=== PATIENT | female | born 1970 ===

== ENCOUNTER 2024-06-16 15:20 | Outpatient (AMB) | payer MEDICAID, SELFPAY ==
--- NOTE | 2024-06-16 15:22 | A.OFFVIS_ITS ---
Vital Signs 06/16/24 15:23 Height 5 ft 4 in Weight 137 lb 12.623 oz BMI 23.6 BP 110/62 Blood Pressure Location Lt brachial Position Sitting Pulse 85 Pulse Source Pulse Oximeter Pulse Oximetry (%) 100 Oxygen Delivery Method Room Air Oxygen Flow Rate 0 Intake Visit Reasons: copd Intake Note: pt is here for , dx with alpha tripson INSUFFICIENCY and copd 1991 ([facility]). now she cannot get a deep breath, and finding it harder than it ever was, affecting her everyday life. Shim Plug Cutter Required: No Allergies Cephalosporins [CEPHALOSPORINS] Allergy (Unknown, Unverified 06/16/24 17:12) UNKNOWN haloperidol [From HALDOL] Allergy (Unknown, Unverified 06/16/24 17:12) DIFFICULTY BREATHING nitrofurantoin [NITROFURANTOIN] Allergy (Unknown, Unverified 06/16/24 17:12) edema NSAIDS (Non-Steroidal Anti-Inflamma [NSAIDS (NON-STEROIDAL ANTI-INFLAMMA] Allergy (Unknown, Unverified 06/16/24 17:12) BLEEDING ULCERS penicillin V Allergy (Unknown, Verified 06/16/24 17:12) Unknown Penicillins Allergy (Unknown, Unverified 06/16/24 17:12) RASH quetiapine [From SEROQUEL] Allergy (Unknown, Unverified 06/16/24 17:12) ?EPS Sulfa (Sulfonamide Antibiotics) [SULFA (SULFONAMIDE ANTIBIOTICS)] Allergy (Unknown, Unverified 06/16/24 17:12) UNKNOWN Medication List - Last Reconciled 06/16/24 by Essie Walsh MD albuterol sulfate 90 mcg/actuation 2 puffs inhalation Q6H PRN atenolol 100 mg PO DAILY clonidine HCl 0.2 mg PO TID famotidine 20 mg PO BEDTIME furosemide 40 mg PO DAILY tiotropium bromide (Spiriva with HandiHaler) 1 cap inhalation DAILY PRN Do you need a note to return to daycare/school/sports/work: No HPI HPI copd: Details: THIS 53 YEARS OLD FEMALE CAME TO OUR OFFICE TODAY AND WANTED TO BE SEEN. SHE CLAIMS THAT IN THE PAST SHE HAS SEEN ME AND TODAY ALSO WANTED TO BE SEEN BY ME. IN OUR HOSPITAL RECORD SYSTEM I SEE NO RECORD SEEING HER IN THIS OFFICE. SHE CLAIMS THAT SHE WAS LIVING IN [place] UNTIL ABOUT 2009, THAT IS WHEN SHE MOVED TO [facility]. HER DAUGHTER WHO LIVES IN [place] HAS BEEN DIAGNOSED TO HAVE ALPHA ANTITRYPSIN DEFICIENCY. SHE COULD NOT TELL ME THE DETAILS OF HER TREATMENT. HE TOLD ME THAT SHE WAS ALSO TESTED AND SHE HAS THE GENETIC TRAIT BUT NOT REAL ANTITRYPSIN DEFICIENCY. ANYWAY SHE HAS BEEN TREATED FOR CHRONIC OBSTRUCTIVE PULMONARY DISEASE SINCE MANY YEARS AGO. I COULD SEE THAT SHE HAD A PULMONARY FUNCTION TEST AT [facility] BACK IN 2010 WHICH DID SHOW MILD TO MODERATE DEGREE OF OBSTRUCTIVE AIRWAY DISORDER. INITIALLY THIS PATIENT WAS ON SPIRIVA AND ALSO INHALED STEROIDS ( ASMANEX) SHE TELLS ME THAT SHE COULD NOT TOLERATE THE INHALED STEROIDS. SHE TELLS ME THAT THERE WAS SOME INTERACTION BETWEEN THIS INHALER AND THE DIURETICS, AND SHE GETS LOT OF MUSCLE CRAMPS IN THE LEGS WHEN SHE USES THE INHALER. ANYWAY SHE DOES USE SPIRIVA HANDIHALER ONCE A DAY. SHE DENIES ANY BOUTS OF COUGH OR WHEEZING. BUT SHE DOES GET SHORT OF BREATH WHEN SHE CLIMBS STAIRS OR WALKS OUTDOORS. SHE IS ASKING FOR SOME ORAL STEROIDS TO USE SHE NEEDS. AT THE SAME TIME SHE IS ALSO ON DIURETIC THERAPY TAKING LASIX 30 MG A DAY FOR FLUID RETENTION IN THE LEGS. SHE DOES NOT PRESENT WITH ANY ACUTE INFECTION AT THIS TIME. DURING CONVERSATION IN THE OFFICE I COULD SEE THAT SHE SITTING COMFORTABLY WITHOUT ANY SHORTNESS OF BREATH. [facility] Medical History COPD (chronic obstructive pulmonary disease) Social History Patient Tobacco Use Status: Former Tobacco user Review of Systems Const Details: REVIEW OF SYSTEMS IS NOTED IN HISTORY OF PRESENT ILLNESS. Physical Exam Vital Signs: Last Vital Signs Pulse 85 06/16/24 15:23 BP 110/62 06/16/24 15:23 Pulse Ox 100 06/16/24 15:23 Oxygen Delivery Method Room Air 06/16/24 15:23 Oxygen Flow Rate 0 06/16/24 15:23 BMI result Body Mass Index 23.6 PATIENT IS OF A THIN BUILD, SHE IS SITTING. COMFORTABLY WITHOUT ANY DISTRESS Const General: healthy appearing, comfortable, no acute distress, alert and awake Orientation/consciousness: patient oriented x3 HEENT Head: Yes normal to inspection General nose exam: No nasal polyps present and No nasal discharge present Face and sinus: Yes sinuses nontender Mouth: oropharynx normal Throat: Yes posterior oropharynx normal Eyes General: appearance normal, both eyes and all related structures Neck Neck: Yes normal visual inspection, Yes no lymphadenopathy, Yes trachea midline and Yes no JVD Thyroid: Thyroid normal Chest Chest palpation & inspection: normal inspection of the chest, normal palpation of entire chest wall and no tenderness Resp Other: PERCUSSION NOTE IS RESONANT, BREATH SOUNDS SLIGHTLY DISTANT BUT EQUAL ON BOTH SIDES, NO WHEEZES OR RHONCHI ARE HEARD Effort & Inspection: normal respiratory effort Auscultation: clear to auscultation bilaterally, no crackles and no wheezes Cardio Palpation: normal PMI Rate: regular rate Rhythm: regular rhythm Heart sounds: no gallops and no murmurs GI Palpation (GI): Soft to palpation, nontender, No hepatosplenomegaly present and no masses Auscultation: normal bowel sounds Back/Spine/Pelvis Thoracic/Lumbar Spine: thoracic and lumbar spine normal to inspection Skin General skin exam: no rashes or lesions noted Neuro General: patient oriented x3 and no focal motor deficits Cranial nerves: Yes CN's II-XII intact bilaterally Extrem General: Yes normal to inspection, Yes no clubbing, cyanosis or edema, Yes no calf tenderness and No edema Psych Appearance: grossly normal and well kempt Speech and movement: Normal speech and movement present Affect: Anxious affect present Assessment & Plan Assessment & Plan (1) COPD (chronic obstructive pulmonary disease): Comment: PATIENT HAS PAST HISTORY OF SMOKING QUIT MANY YEARS AGO. SHE DOES HAVE MILD CHRONIC OBSTRUCTIVE PULMONARY DISEASE, WAS NOTED IN PFT IN 2011. AT PRESENT LUNGS ARE CLEAR. NEEDS PULMONARY FUNCTION TEST TO DETERMINE THE SEVERITY OF COPD. Code(s): J44.9 - Chronic obstructive pulmonary disease, unspecified Category: Medical Plan: PULMONARY FUNCTION TEST IS ORDERED BEFORE NEXT VISIT CHEST X-RAY IS ORDERED. FOR TREATMENT PATIENT IS ADVISED TO CONTINUE USING SPIRIVA HANDIHALER 1 CAPSULE DAILY AND ALSO USE ALBUTEROL 2 PUFFS Q 4-6 HOURS P.R.N.. PATIENT WAS ASKING FOR PREDNISONE, AND I HAD TO TALK TO HER AT LENGTH AND EXPLAINED THAT SHE DOES NOT NEED PREDNISONE AT THIS TIME. I WILL DECIDE AFTER THE PULMONARY FUNCTION TEST IF SHE NEEDS TO BE STARTED ON SOME INHALED STEROIDS Orders: Orders PFT pulmonary function test Today J44.9 - Chronic obstructive pulmonary disease, unspecified XR chest 2V Today J44.9 - Chronic obstructive pulmonary disease, unspecified Coding Level of Care Code New Pt Level 4 (92744) Diagnoses COPD (chronic obstructive pulmonary disease) J44.9
[2024-06-16 15:23] VITALS: BP 110/62; PULSE 85; O2SAT 100; BMI 23.6
--- OUTSIDE RECORDS SUMMARY | 2024-06-16 17:18 | XMS_ITS | Encounter Summary ---
Author Organization [employer] Address [address] [place] [address] [address], [place] [address] Care Team Providers Care Phonograph Needle Tip Maker Name Role Phone Eloy Dick MD Primary Care Provider +1- [phone] Reason for Visit * Reason Comments Med Refill Encounter Details Date Type Department Care Team (Late st Contact Info) Description 12/30/2023 Refill [facility] [address] [place], [place] [phone] Eloy Dick MD [address] [place] [address] Attention deficit disorder (ADD) without hyperactivity Social History Tobacco Use Types Packs/Day Years Used Date Smoking Tobacco: Former Cigarettes 0.3 8 2 2018 Smokeless Tobacco: Never Comments Unknown Sex and Gender Information Value Date Recorded Sex Assigned at Female 03/18/2022 10:21 AM EDT Legal Sex Female 10:21 AM EDT Gender Identity Female 03/18/2022 10:21 AM EDT Sexual Orientation Choose not to disclose 2021 10:21 AM EDT documented as of this encounter Plan of Treatment Not on file documented as of this encounter Visit Diagnoses Diagnosis Attention deficit disorder (ADD) without hyperactivity documented in this encounter Care Teams Phonograph Needle Tip Maker Relationship Specialty Start Date End Date Eloy Dick MD [address] [place] [address] PCP - General Internal Medicine 05/19/18 documented as of this encounter
--- OUTSIDE RECORDS SUMMARY | 2024-06-16 17:18 | XMS_ITS | Encounter Summary ---
Author Organization [employer] Address [address] [facility] [address] [place] [address] Care Team Providers Care Furniture Installer Name Role Phone Eloy Dick MD Primary Care Provider +1- [phone] Reason for Visit * Reason Onset Date Comments Med Refill 12/30/2023 Encounter Details Date Type Department Care Team (Late st Contact Info) Description 12/30/2023 Telephone [facility] MEDICINE [address] [place] [address] Eloy Dick MD [address] [place], [place] [phone] Med Refill Social History Tobacco Use Types Packs/Day Years [...] AM EDT documented as of this encounter Miscellaneous Notes * Telephone Encounter - Wing Raul RN - 12/31/2023 9:05 AM EDT Tc to pt regarding prednisone prescribed and recommendation for pt to be seen earlier than appt for02/05. Pt declined due to her belief that prednisone would work and difficulty with transportation. Advised pt to call back if she would like an earlier appt. Pt verbalized understanding and agreementwith plan. * Telephone Encounter - Wing Raul RN - 12/30/2023 1:17 PM EDT Please advise, pt requesting prednisone, 20 mg due to Alpha-11 antitrypsin deficiency causing increasing in coughing and difficulty breathing. Pt reports she usually gets med from PCP twice a year. Stated to pt would pass message along to PCP and have an RN call back when PCP make a decision. Pt verbalized understanding and agreement with plan. * Telephone Encounter - Elle Valerio LPN - 12/30/2023 12:49 PM EDT Med not on med list Tc from pt requesting med refill on predniSONE (Deltasone) 20 MG tablet Pt states she is really needing this medication due to her medical conditions Please sent to [facility] * Telephone Encounter - Myriam Castle - 12/30/2023 10:49 AM EDT Tc from pt requesting med refill on predniSONE (Deltasone) 20 MG tablet Pt states she is really needing this medication due to her medical conditions Please sent to [facility] documented in this encounter Plan of Treatment Not on file documented as of this encounter Visit Diagnoses Diagnosis Moderate persistent asthma with acute exacerbation- Primary documented in this encounter Care Teams Furniture Installer Relationship Specialty Start Date End Date Eloy Dick MD [address] [place] [address] PCP - General Internal Medicine 05/19/18 documented as of this encounter
--- OUTSIDE RECORDS SUMMARY | 2024-06-16 17:18 | XMS_ITS | Encounter Summary ---
Author Organization [employer] Address [address] [facility] [address] [place] [address] Care Team Providers Care Pocket Machine Operator Name Role Phone Eloy Dick MD Primary Care Provider +1- [phone] Encounter Details Date Type Department Care Team ([facility] st Contact Info) Description 11/22/2022 Orders Only [facility] [address] [place], [place] [phone] Eloy Dick MD [address] [place] [address] Social History Tobacco Use Types Packs/Day Years Used Date Smoking Tobacco: Former Cigarettes 0.3 8 2 011 - 2019 Smokeless Tobacco: Never Comments Unknown Sex and Gender Information Value Date Recorded Sex Assigned at Female 03/18/2022 10:21 AM EDT Legal Sex Female 10:21 AM EDT Gender Identity Female 03/18/2022 10:21 AM EDT Sexual Orientation Choose not to disclose 2021 10:21 AM EDT documented as of this encounter Plan of Treatment Not on file documented as of this encounter Visit Diagnoses Not on filedocumented in this encounter Care Teams Pocket Machine Operator Relationship Specialty Start Date End Date Eloy Dick MD [address] [place] [address] PCP - General Internal Medicine 05/19/18 documented as of this encounter
--- OUTSIDE RECORDS SUMMARY | 2024-06-16 17:19 | XMS_ITS | Clinical Summary ---
Author Organization [employer] Address [address] [place] [address] [address] [place] [address] Care Team Providers Care Materials Planner/Production Planner Name Role Phone Eloy Dick MD Primary Care Provider +1- [phone] Allergies Active Allergy Reactions Criticality Noted Date Comments Cephalosporins 07/23/2022 Diltiazem 08/22/2020 Other reaction(s): Edema Haloperidol 01/07/2018 Losartan 09/05/2020 Other reaction(s): Erythema Nitrofurantoin 04/27/2014 Other reaction(s): Swelling, difficulty breathing , Swelling, difficulty breathing Penicillins Rash Low 05/08/2010 Quetiapine 07/23/2022 Sulfadiazine 07/23/2022 Medications levothyroxine (Synthroid, Levoxyl) 25 MCG tablet Take 25 mcg by mouth. 018 Active Mometasone Furoate (Asmanex, 60 Metered Doses,) 220 MCG/ACT aerosol powder inhale 1 puff by inhalation route 2 times every day 022 Active tiotropium (Spiriva HandiHaler) 18 MCG inhalation capsuleIndication s:SOB (shortness of breath) Place 1 capsule (18 mcg) into inhaler and inhale in the morning. 30 capsule 023 Active cloNIDine (Catapres) 0.3 MG tabletIndications :Essential hypertension TAKE 1 TABLET BY MOUTH THREE TIMES DAILY 90 tablet 1 024 Active nicotine (Nicoderm CQ) 21 MG/24HR patch Place 1 patch on the skin 1 (one) time each day at the same time. 30 patch 024 Active furosemide (Lasix) 20 MG tabletIndications :Essential hypertension TAKE 1 TABLET BY MOUTH TWICE DAILY 180 tablet 1 024 Active nicotine (Nicoderm CQ) 7 MG/24HR patch Place 1 patch on the skin 1 (one) time each day at the same time for 14 days. 14 patch 024 Active levothyroxine (Synthroid, Levoxyl) 50 MCG tabletIndications :Other specified hypothyroidism TAKE 1 TABLET BY MOUTH ONCE DAILY BEFORE BREAKFAST 90 tablet 1 024 Active cloNIDine (Catapres) 0.3 MG tabletIndications :Essential hypertension TAKE 1 TABLET BY MOUTH THREE TIMES DAILY 90 tablet 3 024 Active atenolol (Tenormin) 100 MG tabletIndications :Essential hypertension TAKE 1 TABLET BY MOUTH ONCE DAILY 90 tablet 1 024 Active nicotine (Nicoderm, Step 2) 14 MG/24HR patch APPLY 1 PATCH TOPICALLY TO THE SKIN IN THE MORNING. DO NOT SMOKE WHILE USING PATCH 28 patch 024 Active albuterol (Ventolin HFA) 108 (90 Base) MCG/ACT inhalerIndication s:Mild intermittent asthma without complication INHALE 2 PUFFS BY MOUTH EVERY 4 HOURS NEEDED 18 g 1 025 Active amphetamine-dextr oamphetamine (Adderall) 30 MG tabletIndications :Attention deficit disorder (ADD) without hyperactivity TAKE 1 TABLET BY MOUTH TWICE DAILY 60 tablet 025 Active famotidine (Pepcid) 20 MG tabletIndications :Epigastric pain Take 1 tablet (20 mg) by mouth Once per day. 30 tablet 11 025 Active famotidine (Pepcid) 20 MG tablet Take 1 tablet by mouth. 021 2024 Discontinued(R eorder (will not trigger notification to Pharmacy)) famotidine (Pepcid) 40 MG/5ML suspensionIndicat ions:Epigastric pain Take 1.9 mL (15.2 mg) by mouth 2 times daily. 50 mL 2 024 2024 Discontinued albuterol (Ventolin HFA) 108 (90 Base) MCG/ACT inhalerIndication s:Mild intermittent asthma without complication INHALE 2 PUFFS BY MOUTH EVERY 4 HOURS NEEDED 18 g 1 024 2024 Discontinued amphetamine-dextr oamphetamine (Adderall) 30 MG tabletIndications :Attention deficit disorder (ADD) without hyperactivity TAKE 1 TABLET BY MOUTH TWICE DAILY 60 tablet 024 2024 Discontinued(R eorder (will not trigger notification to Pharmacy)) Active Problems Problem Noted Date Diagnosed Date Borderline personality disorder 07/23/2022 Chronic obstructive pulmonary disease 07/23/2022 History of hysterectomy 07/23/2022 Posttraumatic stress disorder 07/23/2022 Impaired fasting glucose 12/17/2020 Asthma 10/18/2019 Attention deficit hyperactivity disorder 012 Backache 08/15/2011 Dizziness and giddiness 08/15/2011 Gastroesophageal reflux disease 08/15/2011 Essential hypertension 08/15/2011 Encounters Date Type Department Care Team Description 06/03/2024 Orders Only [facility] [address] [place] [address] Eloy Dick MD Epigastric pain (Primary Dx) 06/02/2024 Telephone [facility] MED[facility] [address] [place] [address] Eloy Dick MD Medication Question 06/02/2024 Refill [facility] [address] [place] [address] Eloy Dick MD Attention deficit disorder (ADD) without hyperactivity 05/20/2024 Refill [facility] MED & PEDS [address] [place] [address] Eloy Dick MD Mild intermittent asthma without complication 05/10/2024 Refill [facility] PEDS [address] [place] [address] Eloy Dick MD 04/14/2024 Refill [facility] [address] [place] [address] Eloy Dick MD Essential hypertension 04/01/2024 Telephone [facility] [address] [place] [address] Eloy Dick MD Med Refill 03/31/2024 Refill [facility] PEDS [address] [place] [address] Eloy Dick MD Attention deficit disorder (ADD) without hyperactivity from Last 3 Months Family History Medical History Relation Name Comments Coronary artery disease Father Stroke Father Coronary artery disease Maternal Grandfather Coronary artery disease Maternal Grandmother Breast cancer Mother Hypertension Mother Coronary artery disease Paternal Grandfather Coronary artery disease Paternal Grandmother Relation Name Status Comments Father Maternal Grandfather Maternal Grandmother Mother Paternal Grandfather Paternal Grandmother Social History Tobacco Use Types Packs/Day Years Used Date Smoking Tobacco: Former Cigarettes 0.3 8 2 011 2018 Smokeless Tobacco: Never Tobacco Cessation:Counseling Given: Not Answered Comments Unknown Sex and Gender Information Value Date Recorded Sex Assigned at Female 03/18/2022 10:21 AM EDT Legal Sex Female 10:21 AM EDT Gender Identity Female 03/18/2022 10:21 AM EDT Sexual Orientation Choose not to disclose 2021 10:21 AM EDT Last Filed Vital Signs Vital Sign Reading Time Taken Comments Blood Pressure 127/86 02/06/2024 3:22 PM EDT Pulse 86 02/06/2024 3:22 PM EDT Temperature 36.3 ??C (97.4 ??F) 02/06/2024 3:22 PM ED T Respiratory Rate 20 02/06/2024 3:22 PM EDT Oxygen Saturation 97% 02/06/2024 3:22 PM EDT Inhaled Oxygen Concentration - - Weight 62.1 kg (137 lb) 02/06/2024 3:22 PM EDT Height 162.6 cm (5' 4 ) 02/06/2024 3:22 PM EDT Body Mass Index 23.52 02/06/2024 3:22 PM EDT Plan of Treatment Health Maintenance Due Date Last Done Comments CT Colonography 1969 Colonoscopy 1969 Colorectal Cancer Screening 1969 Depression Screening 1969 FIT DNA/Cologuard 1969 FIT 1969 FOBT 1969 HIV Screening 1969 Lipid Panel 1969 SDOH Screening 1969 Sigmoidoscopy 1969 Alcohol/Substance Use Screening 1981 Hepatitis C Screening 1987 DTaP/Tdap/Td Vaccines (1 - Tdap) 1988 Hepatitis A Vaccines (1 of 2 - Risk 2-dose series) 1988 Hepatitis B Vaccines (1 of 3 - 19+ 3-dose series) 1988 Pap Smear 1990 Cervical Cancer Screening 1999 HPV/Cotest 1999 Mammogram 2009 Pneumococcal Vaccine: 50+ Years (3 of 3 - PCV20 or PCV21) 2019 04/20/2014, 07/12/2009 Zoster Vaccines (1 of 2) 2019 COVID-19 Vaccine (1 - 2023- season) 2024 Influenza Vaccine (#1) 2024 , 03/11/2014, 08/20/2011, Additional history exists Tobacco Screening 02/05/2025 02/06/2024 RSV Patients and Patients Aged 60 years or older (1 - 1-dose 75+ series) 2044 HIB Vaccines Aged Out No longer eligi ble based on patient's age to complete this topic HPV Vaccines Aged Out No longer eligi ble based on patient's age to complete this topic IPV Vaccines Aged Out No longer eligi ble based on patient's age to complete this topic Meningococcal Vaccine Aged Out No vic phuong eligible based on patient's age to complete this topic RSV under 20 months Aged Out No longe r eligible based on patient's age to complete this topic Rotavirus Vaccines Aged Out No longer eligible based on patient's age to complete this topic Insurance [facility] C3 Care Teams Materials Planner/Production Planner Relationship Specialty Start Date End Date Eloy Dick MD [address] [place] [address] PCP - General Internal Medicine 05/19/18
--- OUTSIDE RECORDS SUMMARY | 2024-06-16 17:19 | XMS_ITS | Encounter Summary ---
Author Organization [employer] Address [address] [place] [address], [place] [address] Care Team Providers Care Manager Operations Research Name Role Phone Eloy Dick MD Primary Care Provider +1- [phone] Reason for Visit * Reason Comments Med Refill Encounter Details Date Type Department Care Team (Late st Contact Info) Description 12/18/2023 Refill [facility] [address] [place], [place] [phone] Eloy Dick MD [address] [place] [address] Mild intermittent asthma without complication Social History Tobacco Use Types Packs/Day Years [...] as of this encounter Visit Diagnoses Diagnosis Mild intermittent asthma without complication documented in this encounter Care Teams Manager Operations Research Relationship Specialty Start Date End Date Eloy Dick MD [address] [place] [address] PCP - General Internal Medicine 05/19/18 documented as of this encounter
--- OUTSIDE RECORDS SUMMARY | 2024-06-16 17:19 | XMS_ITS | Encounter Summary ---
Author Organization [employer] Address [address] [place] [address] [address] Care Team Providers Care Stretcher And Drier Name Role Phone Eloy Dick MD Primary Care Provider +1- [phone] Reason for Visit * Reason Comments Med Refill Encounter Details Date Type Department Care Team (Late st Contact Info) Description 05/20/2024 Refill [facility] [address] [place], [place] [phone] Eloy Dick MD [address] [place], [place] [phone] Mild intermittent asthma without complication Social History [...] complication documented in this encounter Care Teams Stretcher And Drier Relationship Specialty Start Date End Date Eloy Dick MD [address] [place] [address] PCP - General Internal Medicine 05/19/18 documented as of this encounter
--- OUTSIDE RECORDS SUMMARY | 2024-06-16 17:19 | XMS_ITS | Encounter Summary ---
Author Organization [employer] Address [address] [facility] [address] [place] [address] Care Team Providers Care Buck Swamper Name Role Phone Eloy Dikc MD Primary Care Provider +1- [phone] Reason for Visit * Reason Onset Date Comments Med Refill 04/01/2024 Encounter Details Date Type Department Care Team (Late st Contact Info) Description 04/01/2024 Telephone [facility] [address] [place] [address] Eloy Dick MD [address] [place] [address] Med Refill Social History Tobacco Use Types [...] encounter Miscellaneous Notes * Telephone Encounter - Selena Nelson LPN - 04/01/2024 2:30 PM EST Medication pended to PCP. * Telephone Encounter - Aleksander Stone - 04/01/2024 2:27 PM EST TC from pt requesting medication refill. Medications needing refill : nicotine (Nicoderm CQ) 14 MG/24HR patch To be sent to: [facility] - [place], [place] - [address] [facility] documented in this encounter Plan of Treatment Not on file documented as of this encounter Visit Diagnoses Not on filedocumented in this encounter Care Teams Buck Swamper Relationship Specialty Start Date End Date Eloy Dick MD [address] [place] [address] PCP - General Internal Medicine 05/19/18 documented as of this encounter
--- OUTSIDE RECORDS SUMMARY | 2024-06-16 17:19 | XMS_ITS | Encounter Summary ---
Author Organization [employer] Address [address] [facility] [address] [place] [address] Care Team Providers Care Cigar Packer And Shader Name Role Phone Eloy Dick MD Primary Care Provider +1- [phone] Reason for Visit * Reason Comments Med Refill Encounter Details Date Type Department Care Team (Late st Contact Info) Description 02/23/2023 Refill [facility] [address] [place], [place] [phone] Eloy Dick MD [address] [place] [address] Essential hypertension Social History Tobacco Use Types Packs/Day Years [...] as of this encounter Visit Diagnoses Diagnosis Essential hypertension Unspecified essential hypertension documented in this encounter Care Teams Cigar Packer And Shader Relationship Specialty Start Date End Date Eloy Dick MD [address] [place] [address] PCP - General Internal Medicine 05/19/18 documented as of this encounter
--- OUTSIDE RECORDS SUMMARY | 2024-06-16 17:19 | XMS_ITS | Encounter Summary ---
Author Organization [employer] Address [address] [facility] [place] [address] Care Team Providers Care Manager Cable Name Role Phone Eloy Dick MD Primary Care Provider +1- [phone] Reason for Visit * Reason Onset Date Comments Med Refill 06/02/2024 Encounter Details Date Type Department Care Team ([facility] st Contact Info) Description 06/02/2024 Refill [facility] MEDICINE 230 [place] [address] Eloy Dick MD 505 [place] [address] Attention deficit disorder (ADD) without hyperactivity Social [...] encounter Miscellaneous Notes * Telephone Encounter - Aleksander Stone - 06/02/2024 3:18 PM EST TC from pt requesting medication refill. Medications needing refill : amphetamine-dextroamphetamine (Adderall) 30 MG tablet To be sent to: [facility] - [place], [place] - 230 [facility] documented in this encounter Plan of Treatment Not on file documented as of this encounter Visit Diagnoses Diagnosis Attention deficit disorder (ADD) without hyperactivity documented in this encounter Care Teams Manager Cable Relationship Specialty Start Date End Date Eloy Dick MD [address] [place] [address] PCP - General Internal Medicine 05/19/18 documented as of this encounter
--- OUTSIDE RECORDS SUMMARY | 2024-06-16 17:19 | XMS_ITS | Encounter Summary ---
Author Organization [employer] Address 75 [facility] 7[address] [place] [address] Care Team Providers Care Suede Brusher Name Role Phone Eloy Dick MD Primary Care Provider +1- [phone] Encounter Details Date Type Department Care Team ([facility] st Contact Info) Description 06/03/2024 Orders Only [facility] MED & PEDS 505 [place], [place] [phone] Eloy Dick MD 505 [place] [address] Epigastric pain (Primary Dx) Social History Tobacco Use Types Packs/Day Years [...] as of this encounter Visit Diagnoses Diagnosis Epigastric pain- Primary Abdominal pain, epigastric documented in this encounter Care Teams Suede Brusher Relationship Specialty Start Date End Date Eloy Dick MD 505 [place] [address] PCP - General Internal Medicine 05/19/18 documented as of this encounter
--- OUTSIDE RECORDS SUMMARY | 2024-06-16 17:19 | XMS_ITS | Encounter Summary ---
Author Organization [employer] Address [address] [place] [address] [place], [place] [address] Care Team Providers Care Brim Rounder Name Role Phone Eloy Dick MD Primary Care Provider +1- [phone] Reason for Visit * Reason Comments Med Refill Encounter Details Date Type Department Care Team (Late st Contact Info) Description 12/05/2022 Refill [facility]S 505 [place], [place] [phone] Eloy Dick MD 505 [place] [address] Attention deficit disorder (ADD) without hyperactivity Social [...] hyperactivity documented in this encounter Care Teams Brim Rounder Relationship Specialty Start Date End Date Eloy Dick MD 505 [place] [address] PCP - General Internal Medicine 05/19/18 documented as of this encounter
--- OUTSIDE RECORDS SUMMARY | 2024-06-16 17:19 | XMS_ITS | Encounter Summary ---
Author Organization [employer] Address [address] [place] [address] [place], [place] [address] Care Team Providers Care Regulatory Associate Name Role Phone Eloy Dick MD Primary Care Provider +1- [phone] Reason for Visit * Reason Comments Med Refill Encounter Details Date Type Department Care Team (Late st Contact Info) Description 05/20/2023 Refill [facility] MEDICINE 230 [place], [place] [phone] Eloy Dick MD 505 [place] [address] Attention deficit disorder (ADD) without hyperactivity Social [...] hyperactivity documented in this encounter Care Teams Regulatory Associate Relationship Specialty Start Date End Date Eloy Dick MD 505 [place] [address] PCP - General Internal Medicine 05/19/18 documented as of this encounter
--- OUTSIDE RECORDS SUMMARY | 2024-06-16 17:19 | XMS_ITS | Encounter Summary ---
Author Organization [employer] Address 75 [facility] 7[place] [address] Care Team Providers Care Electro Mechanical Solar Technician Name Role Phone Eloy Dick MD Primary Care Provider +1- [phone] Reason for Visit * Reason Onset Date Comments Medication Question 06/02/2024 Encounter Details Date Type Department Care Team ([facility] st Contact Info) Description 06/02/[address] [facility] MEDICINE 230 [place] [address] Eloy Dick MD 505 [place], [place] [phone] Medication Question Social History Tobacco Use Types Packs/Day Years [...] encounter Miscellaneous Notes * Telephone Encounter - Mary Sanchez RN - 06/03/2024 9:44 AM EST TC to patient. Pt states she believes the suspension was entered in error. She states she did not like the taste of the suspension and asked to switch back to tablet for. Denies any difficulty swallowing. Routing to provider. Can she switch to tablet form? * Telephone Encounter - Aleksander Stone - 06/02/2024 3:21 PM EST Tc from pt requesting to see if its possible to not take med famotidine (Pepcid) 40 MG/5ML suspension And to back top taking the Tablet version of the Med famotidine (Pepcid) 20 MG tablet Contact pt at [phone] documented in this encounter Plan of Treatment Not on file documented as of this encounter Visit Diagnoses Not on filedocumented in this encounter Care Teams Electro Mechanical Solar Technician Relationship Specialty Start Date End Date Eloy Dick MD [address] [place] [address] PCP - General Internal Medicine 05/19/18 documented as of this encounter
== END 2024-06-16 16:18 | disposition home or self-care (01) ==
PROVIDERS: PCP Internal Medicine; Visit Provider Internal Medicine
DX: J44.9 Chronic obstructive pulmonary disease, unspecified (principal)
CPT/HCPCS: 99204

== ENCOUNTER → 2024-06-16 15:20 | Outpatient (BNVA) | payer MEDICAID, SELFPAY | PROVIDERS: PCP Internal Medicine; Visit Provider Internal Medicine | DX: J44.9 Chronic obstructive pulmonary disease, unspecified (principal) | CPT/HCPCS: 99202 ==

== ENCOUNTER 2024-06-16 16:21 | Outpatient (REF) | payer MEDICAID, SELFPAY ==
--- NOTE | ~2024-06-16 | XR_ITS ---
CLINICAL HISTORY: J44.9 - Chronic obstructive pulmonary disease, unspecified 2 view chest x-ray Comparison: None Findings: The lungs are clear. Normal size heart. No acute fracture. IMPRESSION: 1. No acute findings. This document has been electronically signed by: Elgin Jean MD on 06/17/2024 15:28:03
--- OUTSIDE RECORDS SUMMARY | 2024-06-16 17:51 | XMS_ITS | Encounter Summary ---
Author Organization [employer] Address [address] [place] [address] [place], [place] [address] Care Team Providers Care Petroleum Products Sales Representative Name Role Phone Eloy Dick MD Primary Care Provider +1- [phone] Reason for Visit * Reason Comments Med Refill Encounter Details Date Type Department Care Team (Late st Contact Info) Description 12/18/2023 Refill [facility] CHC MED & PEDS 505 [place], [place] [phone] Eloy Dick MD 505 [place] [address] Mild intermittent asthma without complication Social History [...] complication documented in this encounter Care Teams Petroleum Products Sales Representative Relationship Specialty Start Date End Date Eloy Dick MD 505 [place] [address] PCP - General Internal Medicine 05/19/18 documented as of this encounter
--- OUTSIDE RECORDS SUMMARY | 2024-06-16 17:51 | XMS_ITS | Encounter Summary ---
Author Organization [employer] Address [address] [facility] 7[place] [address] Care Team Providers Care Waste Chopper Name Role Phone Eloy Dick MD Primary Care Provider +1- [phone] Encounter Details Date Type Department Care Team ([facility] st Contact Info) Description 11/22/2022 Orders Only [facility] CHC MED & PEDS 505 [place], [place] [phone] Eloy Dick MD 505 [place] [address] Social History Tobacco Use Types Packs/Day Years [...] on filedocumented in this encounter Care Teams Waste Chopper Relationship Specialty Start Date End Date Eloy Dick MD 505 [place] [address] PCP - General Internal Medicine 05/19/18 documented as of this encounter
--- OUTSIDE RECORDS SUMMARY | 2024-06-16 17:51 | XMS_ITS | Encounter Summary ---
Author Organization [employer] Address [address] [place] [address] [place] [address] Care Team Providers Care Estimate Clerk Name Role Phone Eloy Dick MD Primary Care Provider +1- [phone] Reason for Visit * Reason Comments Med Refill Encounter Details Date Type Department Care Team (Late st Contact Info) Description 12/30/2023 Refill C [facility] 505 [place], [place] [phone] Eloy Dick MD 505 [place] [address] Attention deficit disorder (ADD) without hyperactivity Social [...] hyperactivity documented in this encounter Care Teams Estimate Clerk Relationship Specialty Start Date End Date Eloy Dick MD 505 [place] [address] PCP - General Internal Medicine 05/19/18 documented as of this encounter
--- OUTSIDE RECORDS SUMMARY | 2024-06-16 17:51 | XMS_ITS | Encounter Summary ---
Author Organization [employer] Address 75 [facility] 7[address] [place] [address] Care Team Providers Care Drag Out Worker Name Role Phone Eloy Dick MD Primary Care Provider +1- [phone] Reason for Visit * Reason Onset Date Comments Med Refill 12/30/2023 Encounter Details Date Type Department Care Team (Late st Contact Info) Description 12/30/2023 Telephone [facility] MEDICINE 230 [place] [address] Eloy Dick MD 505 [place], [place] [phone] Med Refill Social History Tobacco Use Types [...] to her medical conditions Please sent to [facility] * Telephone Encounter - Myriam Castle - 12/30/2023 10:49 AM EDT Tc from pt requesting med refill on predniSONE (Deltasone) 20 MG tablet Pt states she is really needing this medication due to her medical conditions Please sent to [facility] documented in this encounter Plan of Treatment Not on file documented as of this encounter Visit Diagnoses Diagnosis Moderate persistent asthma with acute exacerbation- Primary documented in this encounter Care Teams Drag Out Worker Relationship Specialty Start Date End Date Eloy Dick MD [address] [place] [address] PCP - General Internal Medicine 05/19/18 documented as of this encounter
--- OUTSIDE RECORDS SUMMARY | 2024-06-16 17:52 | XMS_ITS | Clinical Summary ---
Author Organization [employer] Address [address] [place] [address] 7t [place] [address] Care Team Providers Care Silvering Department Supervisor Name Role Phone Eloy Dick MD Primary Care Provider +1- [phone] Allergies Active Allergy Reactions Criticality Noted Date [...] Department Care Team Description 06/03/2024 Orders Only [facility] CHC MED & PEDS 505 [place] [address] Eloy Dick MD Epigastric pain (Primary Dx) 06/02/2024 Telephone [facility] MEDICINE 230 [place] [address] Eloy Dick MD Medication Question 06/02/2024 Refill [facility] MEDICINE 230 [place] [address] Eloy Dick MD Attention deficit disorder (ADD) without hyperactivity 05/20/2024 Refill [facility] MED & PEDS 505 [place] [address] Eloy Dick MD Mild intermittent asthma without complication 05/10/2024 Refill [facility] MED & PEDS 505 [place] [address] Eloy Dick MD 04/14/2024 Refill [facility] MEDICINE 230 [place] [address] Eloy Dick MD Essential hypertension 04/01/2024 Telephone [facility] MEDICINE 230 [place] [address] Eloy Dick MD Med Refill 03/31/2024 Refill [facility] MED & PEDS 505 [place] [address] Eloy Dick MD Attention deficit disorder (ADD) [...] patient's age to complete this topic Insurance [facility] C3 Care Teams Silvering Department Supervisor Relationship Specialty Start Date End Date Eloy Dick MD [address] [place] [address] PCP - General Internal Medicine 05/19/18
--- OUTSIDE RECORDS SUMMARY | 2024-06-16 17:52 | XMS_ITS | Encounter Summary ---
Author Organization [employer] Address [address] [place] [address] [address] [address] Care Team Providers Care Health And Safety Instructor Name Role Phone Eloy Dick MD Primary Care Provider +1- [phone] Reason for Visit * Reason Comments Med Refill Encounter Details Date Type Department Care Team (Late st Contact Info) Description 05/20/2024 Refill [facility] MED & PEDS 505 [place], [place] [phone] Eloy Dick MD 505 [place], [place] [phone] Mild intermittent asthma without complication Social History [...] complication documented in this encounter Care Teams Health And Safety Instructor Relationship Specialty Start Date End Date Eloy Dick MD 505 [place] [address] PCP - General Internal Medicine 05/19/18 documented as of this encounter
--- OUTSIDE RECORDS SUMMARY | 2024-06-16 17:52 | XMS_ITS | Encounter Summary ---
Author Organization [employer] Address [address] [place] [address] 7[place] [address] Care Team Providers Care Audio Visual Aide Name Role Phone Eloy Dick MD Primary Care Provider +1- [phone] Reason for Visit * Reason Comments Med Refill Encounter Details Date Type Department Care Team (Late st Contact Info) Description 12/05/2022 Refill [facility] [address] [place], [place] [phone] Eloy Dick MD 505 [place] [address] Attention deficit disorder (ADD) without hyperactivity Social [...] hyperactivity documented in this encounter Care Teams Audio Visual Aide Relationship Specialty Start Date End Date Eloy Dick MD 505 [place] [address] PCP - General Internal Medicine 05/19/18 documented as of this encounter
--- OUTSIDE RECORDS SUMMARY | 2024-06-16 17:52 | XMS_ITS | Encounter Summary ---
Author Organization [employer] Address 75 [facility] 7[place] [address] Care Team Providers Care Farm Manager Name Role Phone Eloy Dick MD Primary Care Provider +1- [phone] Reason for Visit * Reason Onset Date Comments Med Refill 06/02/2024 Encounter Details Date Type Department Care Team ([facility] st Contact Info) Description 06/02/[address] [facility] MEDICINE 230 [place] [address] Eloy Dick MD 505 [place] [address] Attention deficit disorder (ADD) without hyperactivity Social [...] 30 MG tablet To be sent to: [facility] - [place], [place] - 230 [facility] documented in this encounter Plan of Treatment Not on file documented as of this encounter Visit Diagnoses Diagnosis Attention deficit disorder (ADD) without hyperactivity documented in this encounter Care Teams Farm Manager Relationship Specialty Start Date End Date Eloy Dick MD [address] [place] [address] PCP - General Internal Medicine 05/19/18 documented as of this encounter
--- OUTSIDE RECORDS SUMMARY | 2024-06-16 17:52 | XMS_ITS | Encounter Summary ---
Author Organization [employer] Address 75 [facility] 7t [place] [address] Care Team Providers Care Medical Lab Scientist Name Role Phone Eloy Dick MD Primary Care Provider +1- [phone] Encounter Details Date Type Department Care Team ([facility] st Contact Info) Description 06/03/2024 Orders Only [facility] CHC MED & PEDS 505 [place], [place] [phone] Eloy Dick MD 505 [place] [address] Epigastric pain (Primary Dx) Social History Tobacco [...] epigastric documented in this encounter Care Teams Medical Lab Scientist Relationship Specialty Start Date End Date Eloy Dick MD 505 [place] [address] PCP - General Internal Medicine 05/19/18 documented as of this encounter
--- OUTSIDE RECORDS SUMMARY | 2024-06-16 17:52 | XMS_ITS | Encounter Summary ---
Author Organization [employer] Address [address] [place] [address] 7[place], [place] [address] Care Team Providers Care Motion Graphics Artist Name Role Phone Eloy Dick MD Primary Care Provider +1- [phone] Reason for Visit * Reason Comments Med Refill Encounter Details Date Type Department Care Team (Late st Contact Info) Description 05/20/2023 Refill [facility] MEDICINE 230 [place], [place] [phone] Eloy Dick MD 505 [place] [address] Attention deficit disorder (ADD) without hyperactivity Social [...] hyperactivity documented in this encounter Care Teams Motion Graphics Artist Relationship Specialty Start Date End Date Eloy Dick MD 505 [place] [address] PCP - General Internal Medicine 05/19/18 documented as of this encounter
--- OUTSIDE RECORDS SUMMARY | 2024-06-16 17:52 | XMS_ITS | Encounter Summary ---
Author Organization [employer] Address 75 [facility] 7[place] [address] Care Team Providers Care Heel Gummer Name Role Phone Eloy Dick MD Primary Care Provider +1- [phone] Reason for Visit * Reason Onset Date Comments Medication Question 06/02/2024 Encounter Details Date Type Department Care Team ([facility] st Contact Info) Description 06/02/2024 Telephone [facility] MEDICINE 230 [place] [address] Eloy Dick MD 505 [place], [place] [phone] Medication Question Social History Tobacco Use Types [...] (Pepcid) 20 MG tablet Contact pt at [phone] documented in this encounter Plan of Treatment Not on file documented as of this encounter Visit Diagnoses Not on filedocumented in this encounter Care Teams Heel Gummer Relationship Specialty Start Date End Date Eloy Dick MD [address] [place] [address] PCP - General Internal Medicine 05/19/18 documented as of this encounter
--- OUTSIDE RECORDS SUMMARY | 2024-06-16 17:52 | XMS_ITS | Encounter Summary ---
Author Organization [employer] Address 75 [facility] 7[place] [address] Care Team Providers Care Cook Pie Name Role Phone Eloy Dick MD Primary Care Provider +1- [phone] Reason for Visit * Reason Onset Date Comments Med Refill 04/01/2024 Encounter Details Date Type Department Care Team (Late st Contact Info) Description 04/01/2024 Telephone [facility] MEDICINE 230 [place] [address] Eloy Dick MD 505 [place] [address] Med Refill Social History Tobacco Use Types [...] encounter Miscellaneous Notes * Telephone Encounter - Selnea Nelson LPN - 04/01/2024 2:30 PM EST Medication pended to PCP. * Telephone Encounter - Aleksander Stone - 04/01/2024 2:27 PM EST TC from pt requesting medication refill. Medications needing refill : nicotine (Nicoderm CQ) 14 MG/24HR patch To be sent to: [facility] - [place], [place] - 230 [facility] documented in this encounter Plan of Treatment Not on file documented as of this encounter Visit Diagnoses Not on filedocumented in this encounter Care Teams Cook Pie Relationship Specialty Start Date End Date Eloy Dick MD [address] [place] [address] PCP - General Internal Medicine 05/19/18 documented as of this encounter
--- OUTSIDE RECORDS SUMMARY | 2024-06-16 17:52 | XMS_ITS | Encounter Summary ---
Author Organization [employer] Address 75 [facility] 7 [place] [address] Care Team Providers Care Operational Risk Analyst Name Role Phone Eloy Dick MD Primary Care Provider +1- [phone] Reason for Visit * Reason Comments Med Refill Encounter Details Date Type Department Care Team (Late st Contact Info) Description 02/23/2023 Refill [facility] MED & PEDS 505 [place], [place] [phone] Eloy Dick MD 505 [place] [address] Essential hypertension Social History Tobacco Use Types [...] hypertension documented in this encounter Care Teams Operational Risk Analyst Relationship Specialty Start Date End Date Eloy Dick MD 505 [place] [address] PCP - General Internal Medicine 05/19/18 documented as of this encounter
== END 2024-06-16 16:22 | disposition home or self-care (01) ==
LOC: HO.XRAY 16:21
PROVIDERS: PCP Internal Medicine; Visit Provider Family Medicine
DX: J44.9 Chronic obstructive pulmonary disease, unspecified (principal)
CPT/HCPCS: 71046

== ENCOUNTER → 2024-06-16 16:25 | Outpatient (BNV) | payer MEDICAID, SELFPAY | PROVIDERS: PCP Internal Medicine; Visit Provider Radiology Diagnostic Radiology | DX: J44.9 Chronic obstructive pulmonary disease, unspecified (principal) | CPT/HCPCS: 71046 ==

== ENCOUNTER 2024-07-22 14:46 | Outpatient (REF) | payer MEDICAID, SELFPAY ==
--- NOTE | 2024-07-22 14:51 | PFT_ITS ---
Indication: COPD Spirometry [FEV1 to FVC 66%; FEV1 2.71 L; FVC 4.14 L. No significant response to bronchodilators noted.] Lung Volumes [Total lung capacity 113% predicted; residual volume 109% predicted] Diffusion Capacity [DLCO 81% predicted] Comparisons [none] Interpretation [There is an obstructive ventilatory defect consistent mild COPD. No significant response to bronchodilators noted. Lung volumes are normal and the diffusing capacity is low normal. Clinical correlation warranted.] MTDD
[2024-07-22 15:24] VITALS: PULSE 82
--- OUTSIDE RECORDS SUMMARY | 2024-07-22 18:10 | XMS_ITS | Encounter Summary ---
Author Organization [email or web address] Address [address] [facility] 7t [place] [address] Care Team Providers Care Cardiology Tech Name Role Phone Eloy Dick MD Primary Care Provider +1- [phone] Encounter Details Date Type Department Care Team ([facility] st Contact Info) Description 06/03/2024 Orders Only [facility]C MED & PEDS [address] [place], [place] [phone] Eloy Dick MD 505 [place] [address] Epigastric pain (Primary Dx) Social History Tobacco Use Types Packs/Day Years Used Date Smoking Tobacco: Former Cigarettes 0.3 8 2 011 - 2018 Smokeless Tobacco: Never Comments Unknown Sex and Gender Information Value Date Recorded Sex Assigned at Female 03/18/2022 10:21 AM EDT Legal Sex Female 10:21 AM EDT Gender Identity Female 03/18/2022 10:21 AM EDT Sexual Orientation Choose not to disclose 2021 10:21 AM EDT documented as of this encounter Plan of Treatment Not on file documented as of this encounter Procedures Procedure Name Priority Date/Time Associated Diagnosis Comments XR CHEST 2 VIEWS Routine 06/17/2024 3:28 PM EST documented in this encounter Results * XR Chest 2 Views (06/17/2024 3:28 PM EST) Anatomical Region Laterality Modality Chest Radiographic Lucía ging 06/17/2024 3:28 PM EST Narrative 06/17/2024 3:29 PM EST ? [facility] ?[address] ?[place] [address] ?XRay Report ? Signed ? Patient: [place],Serene ?MR#: [id number] ?? 18 ? : 1970 ?Acct:[id number] ? Age/Sex: 53 / F ?ADM Date: 06/16/24 ? Loc: HO.XRAY ? Attending Dr: Gricel Walsh MD ? Ordering Physician: Essie Walsh MD ?? Date of Service: 06/16/24 ?? Procedure(s): XR chest 2V ?? Accession Number(s): [id number] ? cc: Essie Walsh MD; Eloy Dick MD ? CLINICAL HISTORY: J44.9 - Chronic obstructive pulmonary disease, unspecified ? 2 view chest x-ray ? Comparison: None ? Findings: ?? The lungs are clear. ?? Normal size heart. ?? No acute fracture. ? IMPRESSION: ?? 1. No acute findings. ? This document has been electronically signed by: Elgin Jean MD on ?? 06/17/2024 15:28:03 ? Dictated By: ?Elgin Jean MD ? Signed By: ?<Electronically signed by Elgin Jean MD in OV> ? 06/17/24 1529 ? DD/ 1528 ? TD/TT: 06/17/24 1528 ? Front Desk Administrator: ? Procedure Note Doncindyter, Image - 06/18/2024 [place] [address] XRay Report Signed Patient: Angelina Vides#: [id number] [birth year] : 1970Acct:[id number] Age/Sex: 53 / FADM Date: 06/16/24 Loc: [facility] Attending Dr: Gricel Walsh MD Ordering Physician: Essie Walsh MD Date of Service: 06/16/24 Procedure(s): XR chest 2V Accession Number(s): [id number] cc: Essie Walsh MD; Eloy Dick MD CLINICAL HISTORY: J44.9 - Chronic obstructive pulmonary disease,unspecified 2 view chest x-ray Comparison: None Findings: The lungs are clear. Normal size heart. No acute fracture. IMPRESSION: 1. No acute findings. This document has been electronically signed by: Elgin Jean MD on 06/17/2024 15:28:03 Dictated By: Elgin Jean MD Signed By: <Electronically signed by Elgin Jean MD in OV> 06/17/24 1529 DD/ 1528 TD/TT: 06/17/24 1528 Front Desk Administrator: [facility] External Provider IMG XR PROCEDURES Edited Result - Final documented in this encounter Visit Diagnoses Diagnosis Epigastric pain- Primary Abdominal pain, epigastric documented in this encounter Care Teams Cardiology Tech Relationship Specialty Start Date End Date Eloy Dick MD [address] [place] [address] PCP - General Internal Medicine 05/19/18 documented as of this encounter
--- OUTSIDE RECORDS SUMMARY | 2024-07-22 18:10 | XMS_ITS | Encounter Summary ---
Author Organization [employer] Address [address] [facility] [address] [place] [address] Care Team Providers Care Desktop Support Associate Name Role Phone Eloy Dick MD Primary Care Provider [phone]- [phone] Reason for Visit * Reason Onset Date Comments Med Refill 12/30/2023 Encounter Details Date Type Department Care Team (Late st Contact Info) Description 12/30/2023 Telephone [facility] MEDICINE [address] [place] [address] Eloy Dick MD [address] [place], [place] [phone] Med Refill Social History Tobacco Use Types [...] to her medical conditions Please sent to [facility] * Telephone Encounter - Myriam Castle - 12/30/2023 10:49 AM EDT Tc from pt requesting med refill on predniSONE (Deltasone) 20 MG tablet Pt states she is really needing this medication due to her medical conditions Please sent to [facility] documented in this encounter Plan of Treatment Not on file documented as of this encounter Visit Diagnoses Diagnosis Moderate persistent asthma with acute exacerbation- Primary documented in this encounter Care Teams Desktop Support Associate Relationship Specialty Start Date End Date Eloy Dick MD [address] [place] [address] PCP - General Internal Medicine 05/19/18 documented as of this encounter
--- OUTSIDE RECORDS SUMMARY | 2024-07-22 18:10 | XMS_ITS | Encounter Summary ---
Author Organization [employer] Address [address] [place] [address] [address], [place] [address] Care Team Providers Care Yarn Cleaner Name Role Phone Eloy Dick MD Primary Care Provider +1- [phone] Reason for Visit * Reason Comments Med Refill Encounter Details Date Type Department Care Team (Late st Contact Info) Description 12/30/2023 Refill [facility] 505 [place], [place] [phone] Eloy Dick MD 505 [place] [address] Attention deficit disorder (ADD) without hyperactivity Social [...] hyperactivity documented in this encounter Care Teams Yarn Cleaner Relationship Specialty Start Date End Date Eloy Dick MD 505 [place] [address] PCP - General Internal Medicine 05/19/18 documented as of this encounter
--- OUTSIDE RECORDS SUMMARY | 2024-07-22 18:10 | XMS_ITS | Encounter Summary ---
Author Organization [employer] Address [address] [facility] 7[address] [place] [address] Care Team Providers Care Fire Sprinkler Installer Name Role Phone Eloy Dick MD Primary Care Provider +1- [phone] Encounter Details Date Type Department Care Team ([facility] st Contact Info) Description 11/22/2022 Orders Only [facility] CHC MED & PEDS [address] [place], [place] [phone] Eloy Dick MD [address] [place] [address] Social History Tobacco Use Types Packs/Day Years [...] on filedocumented in this encounter Care Teams Fire Sprinkler Installer Relationship Specialty Start Date End Date Eloy Dick MD [address] [place] [address] PCP - General Internal Medicine 05/19/18 documented as of this encounter
--- OUTSIDE RECORDS SUMMARY | 2024-07-22 18:10 | XMS_ITS | Encounter Summary ---
Author Organization [employer] Address [address] [place] [address] [address] [address] Care Team Providers Care Email Specialist Name Role Phone Eloy Dick MD Primary Care Provider +1- [phone] Reason for Visit * Reason Comments Med Refill Encounter Details Date Type Department Care Team (Late st Contact Info) Description 12/05/2022 Refill C [facility] 505 [place], [place] [phone] Eloy Dick MD 505 [place] [address] Attention deficit disorder (ADD) without hyperactivity Social [...] hyperactivity documented in this encounter Care Teams Email Specialist Relationship Specialty Start Date End Date Eloy Dick MD 505 [place] [address] PCP - General Internal Medicine 05/19/18 documented as of this encounter
--- OUTSIDE RECORDS SUMMARY | 2024-07-22 18:10 | XMS_ITS | Encounter Summary ---
Author Organization [employer] Address [address] [facility] 7[address] [place] [address] Care Team Providers Care Rivet Sorter Name Role Phone Eloy Dick MD Primary Care Provider +1- [phone] Reason for Visit * Reason Onset Date Comments Med Refill 04/01/2024 Encounter Details Date Type Department Care Team (Late st Contact Info) Description 04/01/2024 Telephone [facility] MEDICINE [address] [place] [address] Eloy Dick MD [address] [place] [address] Med Refill Social History Tobacco Use Types [...] 14 MG/24HR patch To be sent to: [facility] - [place], [place] - [address] [facility] documented in this encounter Plan of Treatment Not on file documented as of this encounter Visit Diagnoses Not on filedocumented in this encounter Care Teams Rivet Sorter Relationship Specialty Start Date End Date Eloy Dick MD [address] [place] [phone] PCP - General Internal Medicine 05/19/18 documented as of this encounter
--- OUTSIDE RECORDS SUMMARY | 2024-07-22 18:10 | XMS_ITS | Encounter Summary ---
Author Organization [employer] Address [address] [facility] 7[address] [place] [address] Care Team Providers Care Research Physiologist Name Role Phone Eloy Dick MD Primary Care Provider +1- [phone] Reason for Visit * Reason Onset Date Comments Med Refill 2024 Encounter Details Date Type Department Care Team (Late st Contact Info) Description 2024 Refill [facility] MEDICINE [address] [place] [address] Eloy Dick MD 505 [place] [address] Social History Tobacco Use Types Packs/Day Years [...] encounter Miscellaneous Notes * Telephone Encounter - Jeri Velasquez - 2024 3:06 PM EST TC from pt requesting medication refill. Medications needing refill : nicotine (Nicoderm, Step 2) 14 MG/24HR patch To be sent to: [facility] documented in this encounter Plan of Treatment Not on file documented as of this encounter Visit Diagnoses Not on filedocumented in this encounter Care Teams Research Physiologist Relationship Specialty Start Date End Date Eloy Dick MD [address] [place] [address] PCP - General Internal Medicine 05/19/18 documented as of this encounter
--- OUTSIDE RECORDS SUMMARY | 2024-07-22 18:10 | XMS_ITS | Encounter Summary ---
Author Organization [employer] Address [address] [facility] [address] [place] [address] Care Team Providers Care Histotechnologist Name Role Phone Eloy Dick MD Primary Care Provider +1- [phone] Reason for Visit * Reason Comments Med Refill Encounter Details Date Type Department Care Team (Late st Contact Info) Description 02/23/2023 Refill [facility] MED & PEDS 505 [place], [place] [phone] Eloy Dick MD 505 [place] [address] Essential hypertension Social History Tobacco Use Types [...] hypertension documented in this encounter Care Teams Histotechnologist Relationship Specialty Start Date End Date Eloy Dick MD [address] [place] [address] PCP - General Internal Medicine 05/19/18 documented as of this encounter
--- OUTSIDE RECORDS SUMMARY | 2024-07-22 18:10 | XMS_ITS | Encounter Summary ---
Author Organization [employer] Address [address] [facility] 7t [place] [address] Care Team Providers Care Inspector Penetrant Name Role Phone Eloy Dick MD Primary Care Provider +1- [phone] Reason for Visit * Reason Onset Date Comments Med Refill 07/08/2024 Encounter Details Date Type Department Care Team ([facility] st Contact Info) Description 07/08/2024 Telephone [facility] MED & PEDS [address] [place], [place] [phone] Eloy Dick MD 505 [place] [address] Med Refill Social History Tobacco Use Types [...] encounter Miscellaneous Notes * Telephone Encounter - Yumiko Emanuel - 07/08/2024 11:38 AM EST TC from pt requesting medication refill. Medications needing refill : nicotine (Nicoderm CQ) 21 MG/24HR patch To be sent to: [facility] - [place], [place] - [address] Pt states is out of meds for the past couple weeks. State has to start back over again at 21mg. Inform medication sent on 06/29/24 was incorrect . Pt would like to know if pcp can send correct medication today. documented in this encounter Plan of Treatment Not on file documented as of this encounter Visit Diagnoses Not on filedocumented in this encounter Care Teams Inspector Penetrant Relationship Specialty Start Date End Date Eloy Dick MD [address] [place] [address] PCP - General Internal Medicine 05/19/18 documented as of this encounter
--- OUTSIDE RECORDS SUMMARY | 2024-07-22 18:10 | XMS_ITS | Encounter Summary ---
Author Organization [employer] Address [address] [place] [address] 7[place] [address] Care Team Providers Care Pattern Mechanic Name Role Phone Eloy Dick MD Primary Care Provider +1- [phone] Reason for Visit * Reason Comments Med Refill Encounter Details Date Type Department Care Team (Late st Contact Info) Description 05/20/2023 Refill [facility] MEDICINE [address] [place], [place] [phone] Eloy Dick MD 505 [place] [address] Attention deficit disorder (ADD) without hyperactivity Social [...] hyperactivity documented in this encounter Care Teams Pattern Mechanic Relationship Specialty Start Date End Date Eloy Dick MD [address] [place] [address] PCP - General Internal Medicine 05/19/18 documented as of this encounter
--- OUTSIDE RECORDS SUMMARY | 2024-07-22 18:10 | XMS_ITS | Encounter Summary ---
Author Organization [employer] Address [address] [place] [address] 7[place], [place] [address] Care Team Providers Care Candy Cutter Hand Name Role Phone Eloy Dikc MD Primary Care Provider +1- [phone] Reason for Visit * Reason Comments Med Refill Encounter Details Date Type Department Care Team (Late st Contact Info) Description 12/18/2023 Refill [facility] MED & PEDS [address] [place], [place] [phone] Eloy Dick MD 505 [place] [address] Mild intermittent asthma without complication Social History [...] complication documented in this encounter Care Teams Candy Cutter Hand Relationship Specialty Start Date End Date Eloy Dick MD 505 [place] [address] PCP - General Internal Medicine 05/19/18 documented as of this encounter
--- OUTSIDE RECORDS SUMMARY | 2024-07-22 18:10 | XMS_ITS | Encounter Summary ---
Author Organization [employer] Address [address] [facility] 7[address] [place] [address] Care Team Providers Care Manager Sound Name Role Phone Eloy Dick MD Primary Care Provider +1- [phone] Encounter Details Date Type Department Care Team ([facility] st Contact Info) Description 07/08/2024 Orders Only [facility] CHC MED & PEDS 505 [place] [address] Eloy Dick MD 505 [place] [address] Smoking addiction (Primary Dx) Social History Tobacco Use Types [...] as of this encounter Visit Diagnoses Diagnosis Smoking addiction- Primary documented in this encounter Care Teams Manager Sound Relationship Specialty Start Date End Date Eloy Dick MD 505 [place] [address] PCP - General Internal Medicine 05/19/18 documented as of this encounter
--- OUTSIDE RECORDS SUMMARY | 2024-07-22 18:10 | XMS_ITS | Clinical Summary ---
Author Organization [employer] Address [address] [place] [address] 7t [place] [address] Care Team Providers Care Drug And Alcohol Treatment Specialist Name Role Phone Eloy Dick MD Primary Care Provider +1- [phone] Allergies Active Allergy Reactions Criticality Noted Date [...] TWICE DAILY 180 tablet 1 024 Active levothyroxine (Synthroid, Levoxyl) 50 MCG tabletIndications :Other specified hypothyroidism TAKE 1 TABLET BY MOUTH ONCE DAILY BEFORE BREAKFAST 90 tablet 1 024 Active atenolol (Tenormin) 100 MG tabletIndications [...] per day. 30 tablet 11 025 Active cloNIDine (Catapres) 0.3 MG tabletIndications :Essential hypertension TAKE 1 TABLET BY MOUTH THREE TIMES DAILY 90 tablet 3 025 Active nicotine (Nicoderm CQ) 7 MG/24HR patch Place 1 patch on the skin 1 (one) time each day at the same time for 14 days. 14 patch 025 Active nicotine (Nicoderm CQ) 21 MG/24HR patchIndications: Smoking addiction Place 1 patch on the skin 1 (one) time each day at the same time. 30 patch 025 2024 Active nicotine (Nicoderm CQ) 7 MG/24HR patch Place 1 patch on the skin 1 (one) time each day at the same time for 14 days. 14 patch 024 2024 Discontinued(R eorder (will not trigger notification to Pharmacy)) nicotine (Nicoderm CQ) 21 MG/24HR patchIndications: Smoking addiction Place 1 patch on the skin 1 (one) time each day at the same time. 30 patch 025 2024 Discontinued(R eorder (will not trigger notification [...] Encounters Date Type Department Care Team Description 07/08/2024 Orders Only [facility] [address] [place] [address] Eloy Dick MD Smoking addiction (Primary Dx) 07/08/2024 Telephone [facility] [address] [place] [address] Eloy Dick MD Med Refill 2024 Refill [facility] [address] [place] [address] Eloy Dick MD 06/17/2024 Refill [facility] [address] [place] [address] Eloy Dick MD Essential hypertension 06/03/2024 Orders Only [facility] [address] [place] [address] Eloy Dick MD Epigastric pain (Primary Dx) 06/02/2024 Telephone [facility] [address] [place] [address] Eloy Dick MD Medication Question 06/02/2024 Refill [facility] [address] [place] [address] Eloy Dick MD Attention deficit disorder (ADD) without hyperactivity 05/20/2024 Refill [facility] [address] [place] [address] Eloy Dick MD Mild intermittent asthma without complication 05/10/2024 Refill [facility] [address] [place] [address] Eloy Dick MD from Last 3 Months Family History Medical [...] 0.3 8 2 2018 Smokeless Tobacco: Never Tobacco Cessation:Counseling Given: [...] on patient's age to complete this topic Procedures Procedure Name Priority Date/Time Associated Diagnosis Comments XR CHEST 2 VIEWS Routine 06/17/2024 3:28 PM EST from Last 3 Months Results * XR Chest 2 Views (06/17/2024 3:28 PM EST) Anatomical Region Laterality Modality Chest Radiographic Lucía ging 06/17/2024 3:28 PM EST Narrative 06/17/2024 3:29 PM EST ? [facility] ?[address] ?[place] [address] ?XRay Report ? Signed ? Patient: Union,Serene ?MR#: [id number] ?? 19 ? : 1970 ?Acct:[id number] ? Age/Sex: 53 / F ?ADM Date: 01/29/25 ? Loc: HO.XRAY ? Attending Dr: Gricel Walsh MD ? Ordering Physician: Essie Walsh MD ?? Date of Service: 06/16/24 ?? Procedure(s): XR chest 2V ?? Accession Number(s): [id number] ? cc: Essie Walsh MD; Eloy Dick [...] DD/ 1528 ? TD/TT: 06/17/24 1528 ? General Worker: ? Procedure Note Donismael, Image - 06/18/2024 [place] [id number] XRay Report Signed Patient: Angelina Vides#: [id number] 19 : 1970Acct:[id number] Age/Sex: 53 / FADM Date: 06/16/24 Loc: LEYLA Attending Dr: Gricel Walsh MD Ordering Physician: Essie Walsh MD Date of Service: 06/16/24 Procedure(s): XR chest 2V Accession Number(s): [id number] cc: Essie Walsh MD; Eloy Dick MD [...] 06/17/24 1529 DD/ 1528 TD/TT: 06/17/24 1528 General Worker: [facility] External Provider IMG XR PROCEDURES Edited Result - Final from Last 3 Months Insurance [employer] C3 Care Teams Drug And Alcohol Treatment Specialist Relationship Specialty Start Date End Date Eloy Dick MD [address] [place] [address] PCP - General Internal Medicine 05/19/18
== END 2024-07-22 14:47 | disposition home or self-care (01) ==
LOC: HO.RESP 14:46
PROVIDERS: PCP Internal Medicine; Visit Provider Internal Medicine
DX: J44.9 Chronic obstructive pulmonary disease, unspecified (principal)
CPT/HCPCS: 94010; 94640; 94727; 94729; 99212

== ENCOUNTER 2024-07-22 15:21 | Outpatient (AMB) | payer MEDICAID, SELFPAY ==
[2024-07-22 15:23] VITALS: BP 102/68; PULSE 84; O2SAT 97; BMI 23.3
--- NOTE | 2024-07-22 15:23 | A.OFFVIS_ITS ---
Vital Signs 07/22/24 15:23 Height 5 ft 4 in Weight 135 lb 9.349 oz BMI 23.3 BP 102/68 Blood Pressure Location Lt brachial Position Sitting Pulse 84 Pulse Source Pulse Oximeter Pulse Oximetry (%) 97 Oxygen Delivery Method Room Air Intake Visit Reasons: Same day PFT Intake Note: pt is here for follow up of pft Tablet Tester Required: No Allergies Cephalosporins [CEPHALOSPORINS] Allergy (Unknown, Unverified 07/22/24 15:41) UNKNOWN haloperidol [From HALDOL] Allergy (Unknown, Unverified 07/22/24 15:41) DIFFICULTY BREATHING nitrofurantoin [NITROFURANTOIN] Allergy (Unknown, Unverified 07/22/24 15:41) edema NSAIDS (Non-Steroidal Anti-Inflamma [NSAIDS (NON-STEROIDAL ANTI-INFLAMMA] Allergy (Unknown, Unverified 07/22/24 15:41) BLEEDING ULCERS penicillin V Allergy (Unknown, Verified 07/22/24 15:41) Unknown Penicillins Allergy (Unknown, Unverified 07/22/24 15:41) RASH quetiapine [From SEROQUEL] Allergy (Unknown, Unverified 07/22/24 15:41) ?EPS Sulfa (Sulfonamide Antibiotics) [SULFA (SULFONAMIDE ANTIBIOTICS)] Allergy (Unknown, Unverified 07/22/24 15:41) UNKNOWN Medication List - Last Reconciled 07/22/24 by Essie Walsh MD albuterol sulfate 90 mcg/actuation 2 puffs inhalation Q6H PRN atenolol 100 mg PO DAILY clonidine HCl 0.2 mg PO TID famotidine 20 mg PO BEDTIME furosemide 40 mg PO DAILY tiotropium bromide (Spiriva with HandiHaler) 1 cap inhalation DAILY PRN Do you need a note to return to daycare/school/sports/work: No HPI HPI Same day PFT: Details: 54 YEARS OLD FEMALE, CAME BACK TODAY FOR FOLLOW-UP, FOR HER COMPLAINT OF DYSPNEA ON EXERTION. SHE HAD PULMONARY FUNCTION TEST PRIOR TO OFFICE VISIT. SHE IS DOING FINE AND HAS HAD NO ATTACKS OF WHEEZING OR COUGH. STILL COMPLAINS OF GETTING SHORT OF BREATH SOMETIME WHEN SHE IS DOING ANY PHYSICAL EXERTION. [facility] Medical History COPD (chronic obstructive pulmonary disease) Social History Patient Tobacco Use Status: Former Tobacco user Review of Systems Const All systems reviewed & are unremarkable except as noted in HPI and below Eyes Reports no additional complaints ENT Reports no additional complaints Card Reports no additional complaints and Reports dyspnea on exertion (MILD) Resp Reports as per HPI and Reports dyspnea on exertion (MILD) GI Reports no additional complaints Musc Reports no additional complaints Skin/Breast Reports system reviewed and no additional complaints, except as documented Neuro Reports no additional complaints Psych Reports anxiety Physical Exam Vital Signs: Last Vital Signs Pulse 84 07/22/24 15:23 BP 102/68 07/22/24 15:23 Pulse Ox 97 07/22/24 15:23 Oxygen Delivery Method Room Air 07/22/24 15:23 BMI result Body Mass Index 23.3 PATIENT IS OF A THIN BUILD, SHE IS SITTING. COMFORTABLY WITHOUT ANY DISTRESS Const General: healthy appearing, comfortable, no acute distress, alert and awake Orientation/consciousness: patient oriented x3 HEENT Head: Yes normal to inspection General nose exam: No nasal polyps present and No nasal discharge present Face and sinus: Yes sinuses nontender Mouth: oropharynx normal Throat: Yes posterior oropharynx normal Eyes General: appearance normal, both eyes and all related structures Neck Neck: Yes normal visual inspection, Yes no lymphadenopathy, Yes trachea midline and Yes no JVD Thyroid: Thyroid normal Chest Chest palpation & inspection: normal inspection of the chest, normal palpation of entire chest wall and no tenderness Resp Other: PERCUSSION NOTE IS RESONANT, BREATH SOUNDS ARE NORMAL AND EQUAL ON BOTH SIDES, NO WHEEZES OR RHONCHI ARE HEARD Effort & Inspection: normal respiratory effort Auscultation: clear to auscultation bilaterally, no crackles and no wheezes Cardio Palpation: normal PMI Rate: regular rate Rhythm: regular rhythm Heart sounds: no gallops and no murmurs GI Palpation (GI): Soft to palpation, nontender, No hepatosplenomegaly present and no masses Auscultation: normal bowel sounds Back/Spine/Pelvis Thoracic/Lumbar Spine: thoracic and lumbar spine normal to inspection Skin General skin exam: no rashes or lesions noted Neuro General: patient oriented x3 and no focal motor deficits Cranial nerves: Yes CN's II-XII intact bilaterally Extrem General: Yes normal to inspection, Yes no clubbing, cyanosis or edema, Yes no calf tenderness and No edema Psych Appearance: grossly normal and well kempt Speech and movement: Normal speech and movement present Affect: Anxious affect present Results Reviewed Results Reviewed: PULMONARY FUNCTION TEST IS ESSENTIALLY NORMAL EXCEPT FOR SLIGHT DECREASE IN FEV1/FVC RATIO AND FEF 25-75. THESE NUMBERS CONSISTENT WITH VERY MILD OBSTRUCTIVE DISORDER. Assessment & Plan Assessment & Plan (1) COPD (chronic obstructive pulmonary disease): Comment: PATIENT HAS PAST HISTORY OF SMOKING .QUIT MANY YEARS AGO. SHE DOES HAVE MILD CHRONIC OBSTRUCTIVE PULMONARY DISEASE, WAS NOTED IN PFT IN 2011. THE PULMONARY FUNCTION TEST TODAY IS DEFINITELY IMPROVED FROM 2011, AND SHOWS ONLY MINIMAL DEGREE OF OBSTRUCTIVE DISORDER. Code(s): J44.9 - Chronic obstructive pulmonary disease, unspecified Category: Medical Plan: EXPLAINED TO THE PATIENT AND SHOWED THE RESULTS OF PFT. SHE IS HAPPY TO KNOW THAT HER LUNG FUNCTION IS ACTUALLY IMPROVED FROM BEFORE. THERE IS NO NEED TO USE ANY MAINTENANCE BRONCHODILATOR INHALERS. SHE WOULD NEED ALBUTEROL 1 OR 2 PUFFS Q 6 HOURS ONLY P.R.N. FOR SEVERE SHORTNESS OF BREATH, WHICH IS NOT EXPECTED TO HAPPEN EXCEPT WITH AN ELEMENT OF ANXIETY. Coding Level of Care Code Est Pt Level 3 (50424) Diagnoses COPD (chronic obstructive pulmonary disease) J44.9
--- OUTSIDE RECORDS SUMMARY | 2024-07-22 18:49 | XMS_ITS | Encounter Summary ---
Author Organization [employer] Address [address] [place] [address] [address], [place] [address] Care Team Providers Care Spares Scheduler Name Role Phone Eloy Dick MD Primary Care Provider +1- [phone] Reason for Visit * Reason Comments Med Refill Encounter Details Date Type Department Care Team (Late st Contact Info) Description 12/30/2023 Refill [facility] [address] [place], [place] [phone] Eloy Dick MD 505 [place] [address] Attention deficit disorder (ADD) without hyperactivity Social [...] hyperactivity documented in this encounter Care Teams Spares Scheduler Relationship Specialty Start Date End Date Eloy Dick MD [address] [place] [address] PCP - General Internal Medicine 05/19/18 documented as of this encounter
--- OUTSIDE RECORDS SUMMARY | 2024-07-22 18:49 | XMS_ITS | Encounter Summary ---
Author Organization [employer] Address [address] [place] [address] 7[place], [place] [address] Care Team Providers Care Director Biologics Name Role Phone Eloy Dick MD Primary Care Provider +1- [phone] Reason for Visit * Reason Comments Med Refill Encounter Details Date Type Department Care Team (Late st Contact Info) Description 12/05/2022 Refill [facility] [address] [place], [place] [phone] Eloy Dick MD 505 [place] [address] Attention deficit disorder (ADD) without hyperactivity Social [...] hyperactivity documented in this encounter Care Teams Director Biologics Relationship Specialty Start Date End Date Eloy Dick MD [address] [place] [address] PCP - General Internal Medicine 05/19/18 documented as of this encounter
--- OUTSIDE RECORDS SUMMARY | 2024-07-22 18:49 | XMS_ITS | Encounter Summary ---
Author Organization [email or web address] Address [address] [facility] 7t [place] [address] Care Team Providers Care Welder Apprentice Gas Name Role Phone Eloy Dick MD Primary Care Provider +1- [phone] Reason for Visit * Reason Onset Date Comments Med Refill 2024 Encounter Details Date Type Department Care Team (Late st Contact Info) Description 2024 Refill [facility] [address] [place] [address] Eloy Dick MD 505 [place] [address] Social History Tobacco Use Types Packs/Day Years [...] 14 MG/24HR patch To be sent to: [facility] documented in this encounter Plan of Treatment Not on file documented as of this encounter Visit Diagnoses Not on filedocumented in this encounter Care Teams Welder Apprentice Gas Relationship Specialty Start Date End Date Eloy Dick MD [address] [place] [address] PCP - General Internal Medicine 05/19/18 documented as of this encounter
--- OUTSIDE RECORDS SUMMARY | 2024-07-22 18:49 | XMS_ITS | Encounter Summary ---
Author Organization [employer] Address [address] [place] [address] 7[place] [address] Care Team Providers Care Automobile Or Truck Rental Dispatcher Name Role Phone Eloy Dick MD Primary Care Provider +1- [phone] Reason for Visit * Reason Comments Med Refill Encounter Details Date Type Department Care Team (Late st Contact Info) Description 12/18/2023 Refill [facility] 505 [place], [place] [phone] Eloy Dick MD 505 [place] [address] Mild intermittent asthma without complication Social History [...] complication documented in this encounter Care Teams Automobile Or Truck Rental Dispatcher Relationship Specialty Start Date End Date Eloy Dick MD 505 [place] [address] PCP - General Internal Medicine 05/19/18 documented as of this encounter
--- OUTSIDE RECORDS SUMMARY | 2024-07-22 18:49 | XMS_ITS | Encounter Summary ---
Author Organization [employer] Address [address] [facility] 7t [place] [address] Care Team Providers Care Guide Name Role Phone Eloy Dick MD Primary Care Provider +1- [phone] Reason for Visit * Reason Onset Date Comments Med Refill 04/01/2024 Encounter Details Date Type Department Care Team (Late st Contact Info) Description 04/01/2024 Telephone [facility] [address] [place] [address] Eloy Dick MD 505 [place] [address] Med Refill Social History Tobacco Use Types [...] 14 MG/24HR patch To be sent to: [facility] - [place], [place] - [address] [facility] documented in this encounter Plan of Treatment Not on file documented as of this encounter Visit Diagnoses Not on filedocumented in this encounter Care Teams Guide Relationship Specialty Start Date End Date Eloy Dick MD [address] [place] [address] PCP - General Internal Medicine 05/19/18 documented as of this encounter
--- OUTSIDE RECORDS SUMMARY | 2024-07-22 18:49 | XMS_ITS | Encounter Summary ---
Author Organization [employer] Address [address] [facility] 7t [place] [address] Care Team Providers Care Chlorination Operator Name Role Phone Eloy Dick MD Primary Care Provider +1- [phone] Reason for Visit * Reason Onset Date Comments Med Refill 07/08/2024 Encounter Details Date Type Department Care Team ([facility] st Contact Info) Description 07/08/2024 Telephone [facility] 505 [place], [place] [phone] Eloy Dick MD 505 [place] [address] Med Refill Social History Tobacco Use Types [...] 21 MG/24HR patch To be sent to: [facility] - [place], [place] - [address] Pt states [...] on filedocumented in this encounter Care Teams Chlorination Operator Relationship Specialty Start Date End Date Eloy Dick MD [address] [place] [address] PCP - General Internal Medicine 05/19/18 documented as of this encounter
--- OUTSIDE RECORDS SUMMARY | 2024-07-22 18:49 | XMS_ITS | Encounter Summary ---
Author Organization [employer] Address [address] [facility] 7 [place] [address] Care Team Providers Care Program Support Assistant Name Role Phone Eloy Dick MD Primary Care Provider +1- [phone] Reason for Visit * Reason Comments Med Refill Encounter Details Date Type Department Care Team (Late st Contact Info) Description 02/23/2023 Refill [facility] [address] [place], [place] [phone] Eloy Dick MD 505 [place] [address] Essential hypertension Social History Tobacco Use Types [...] hypertension documented in this encounter Care Teams Program Support Assistant Relationship Specialty Start Date End Date Eloy Dick MD [address] [place] [address] PCP - General Internal Medicine 05/19/18 documented as of this encounter
--- OUTSIDE RECORDS SUMMARY | 2024-07-22 18:49 | XMS_ITS | Encounter Summary ---
Author Organization [employer] Address [address] [place] [address] 7[place], [place] [address] Care Team Providers Care Manager Sign Name Role Phone Eloy Dick MD Primary Care Provider +1- [phone] Reason for Visit * Reason Comments Med Refill Encounter Details Date Type Department Care Team (Late st Contact Info) Description 05/20/2023 Refill [facility] 230 [place], [place] [phone] Eloy Dick MD 505 [place] [address] Attention deficit disorder (ADD) without hyperactivity Social [...] documented in this encounter Care Teams Manager Sign Relationship Specialty Start Date End Date Eloy Dick MD 505 [place] [address] PCP - General Internal Medicine 05/19/18 documented as of this encounter
--- OUTSIDE RECORDS SUMMARY | 2024-07-22 18:49 | XMS_ITS | Encounter Summary ---
Author Organization [employer] Address [address] [facility] 7t [place] [address] Care Team Providers Care Food Concession Manager Name Role Phone Eloy Dick MD Primary Care Provider +1- [phone] Reason for Visit * Reason Onset Date Comments Med Refill 12/30/2023 Encounter Details Date Type Department Care Team (Late st Contact Info) Description 12/30/2023 Telephone [facility] 230 [place] [address] Eloy Dick MD 505 [place], [place] [phone] Med Refill Social History Tobacco Use Types [...] to her medical conditions Please sent to [facility] * Telephone Encounter - Myriam Castle - 12/30/2023 10:49 AM EDT Tc from pt requesting med refill on predniSONE (Deltasone) 20 MG tablet Pt states she is really needing this medication due to her medical conditions Please sent to [facility] documented in this encounter Plan of Treatment Not on file documented as of this encounter Visit Diagnoses Diagnosis Moderate persistent asthma with acute exacerbation- Primary documented in this encounter Care Teams Food Concession Manager Relationship Specialty Start Date End Date Eloy Dick MD [address] [place] [address] PCP - General Internal Medicine 05/19/18 documented as of this encounter
--- OUTSIDE RECORDS SUMMARY | 2024-07-22 18:49 | XMS_ITS | Encounter Summary ---
Author Organization [employer] Address [address] [facility] 7t [place] [address] Care Team Providers Care Certified Tumor Registrar Name Role Phone Eloy Dick MD Primary Care Provider [phone]- [phone] Encounter Details Date Type Department Care Team ([facility] st Contact Info) Description 11/22/2022 Orders Only [facility] [address] [place], [place] [phone] Eloy Dick MD 505 [place] [address] Social History Tobacco Use Types Packs/Day Years [...] on filedocumented in this encounter Care Teams Certified Tumor Registrar Relationship Specialty Start Date End Date Eloy Dick MD 505 [place] [address] PCP - General Internal Medicine 05/19/18 documented as of this encounter
--- OUTSIDE RECORDS SUMMARY | 2024-07-22 18:49 | XMS_ITS | Clinical Summary ---
Author Organization [employer] Address [address] [place] [address] 7t [place] [address] Care Team Providers Care Promotion Officer Name Role Phone Eloy Dick MD Primary Care Provider +1- [phone] Allergies Active Allergy Reactions Criticality Noted Date [...] Department Care Team Description 07/08/2024 Orders Only [facility] [address] [place] [address] Eloy Dick MD Smoking addiction (Primary Dx) 07/08/2024 Telephone [facility] 505 [place] [address] Eloy Dick MD Med Refill 2024 Refill [facility] [address] [place] [address] Eloy Dick MD 06/17/2024 Refill [facility] 505 [place] [address] Eloy Dick MD Essential hypertension 06/03/2024 Orders Only [facility] 505 [place] [address] Eloy Dick MD Epigastric pain (Primary Dx) 06/02/2024 Telephone [facility] [address] [place] [address] Eloy Dick MD Medication Question 06/02/2024 Refill [facility] [address] [place] [address] Eloy Dick MD Attention deficit disorder (ADD) without hyperactivity 05/20/2024 Refill [facility] [address] [place] [address] Eloy Dick MD Mild intermittent asthma without complication 05/10/2024 Refill [facility] [address] [place] [address] Eloy Dick MD from Last 3 Months [...] EST Narrative 06/17/2024 3:29 PM EST ? [facility] ?[address] ?[place] [address] ?XRay Report ? Signed ? Patient: Tooele,Serene ?MR#: [id number] ?? 19 ? : 1970 ?Acct:[id number] ? Age/Sex: 53 / F ?ADM Date: 01/29/25 ? Loc: HO.XRAY ? Attending Dr: Gricel Walsh MD ? Ordering Physician: Essie Walsh MD ?? Date of Service: 06/16/24 ?? Procedure(s): XR chest 2V ?? Accession Number(s): [id number] ? cc: Essie Walsh MD; Eloy Dick [...] DD/ 1528 ? TD/TT: 06/17/24 1528 ? Fmd Teacher: ? Procedure Note Donismael, Image - 06/18/2024 [place] [address] XRay Report Signed Patient: Angelina Vides#: [id number] 19 : 1970Acct:[id number] Age/Sex: 53 / FADM Date: 06/16/24 Loc: LEYLA Attending Dr: Gricel Walsh MD Ordering Physician: Essie Walsh MD Date of Service: 06/16/24 Procedure(s): XR chest 2V Accession Number(s): [id number] cc: Essie Walsh MD; Eloy Dick MD [...] 06/17/24 1529 DD/ 1528 TD/TT: 06/17/24 1528 Fmd Teacher: [facility] External Provider IMG XR PROCEDURES Edited Result - Final from Last 3 Months Insurance [employer] C[employer] Care Teams Promotion Officer Relationship Specialty Start Date End Date Eloy Dick MD [address] [place] [address] PCP - General Internal Medicine 05/19/18
--- OUTSIDE RECORDS SUMMARY | 2024-07-22 18:49 | XMS_ITS | Encounter Summary ---
Author Organization [employer] Address [address] [facility] 7t [place] [address] Care Team Providers Care C Engineer Name Role Phone Eloy Dick MD Primary Care Provider +1- [phone] Encounter Details Date Type Department Care Team ([facility] st Contact Info) Description 07/08/2024 Orders Only [facility] [address] [place] [address] Eloy Dick MD 505 [place] [address] Smoking addiction (Primary Dx) Social History Tobacco [...] Primary documented in this encounter Care Teams C Engineer Relationship Specialty Start Date End Date Eloy Dick MD 505 [place] [address] PCP - General Internal Medicine 05/19/18 documented as of this encounter
--- OUTSIDE RECORDS SUMMARY | 2024-07-22 18:49 | XMS_ITS | Encounter Summary ---
Author Organization [employer] Address [address] [facility] 7t [place] [address] Care Team Providers Care Extrusion Operator Name Role Phone Eloy Dick MD Primary Care Provider +1- [phone] Encounter Details Date Type Department Care Team ([facility] st Contact Info) Description 06/03/2024 Orders Only [facility] 505 [place], [place] [phone] Eloy Dick MD 505 [place] [address] Epigastric pain (Primary Dx) Social History Tobacco [...] EST Narrative 06/17/2024 3:29 PM EST ? [facility] ?[address] ?[place] [address] ?XRay Report ? Signed ? Patient: Newberry,Serene ?MR#: [id number] ?? 19 ? : 1970 ?Acct:[id number] ? Age/Sex: 53 / F ?ADM Date: 06/16/24 ? Loc: HO.XRAY ? Attending Dr: Gricel Walsh MD ? Ordering Physician: Essie Walsh MD ?? Date of Service: 06/16/24 ?? Procedure(s): XR chest 2V ?? Accession Number(s): [id number] ? cc: Essie Walsh MD; Eloy Dick [...] DD/ 1528 ? TD/TT: 06/17/24 1528 ? Lab Engineer: ? Procedure Note Doncindyter, Image - 06/18/2024 [place] [address] XRay Report Signed Patient: Angelina Vides#: [id number] 19 : 1970Acct:[id number] Age/Sex: 53 / FADM Date: 06/16/24 Loc: LEYLA Attending Dr: Gricel Walsh MD Ordering Physician: Essie Walsh MD Date of Service: 06/16/24 Procedure(s): XR chest 2V Accession Number(s): [id number] cc: Essie Wlash MD; Eloy Dick MD CLINICAL HISTORY: J44.9 [...] 06/17/24 1529 DD/ 1528 TD/TT: 06/17/24 1528 Lab Engineer: [facility] External Provider IMG XR PROCEDURES Edited Result - Final documented in this encounter Visit Diagnoses Diagnosis Epigastric pain- Primary Abdominal pain, epigastric documented in this encounter Care Teams Extrusion Operator Relationship Specialty Start Date End Date Eloy Dick MD [address] [place] [address] PCP - General Internal Medicine 05/19/18 documented as of this encounter
== END 2024-07-22 15:40 | disposition home or self-care (01) ==
PROVIDERS: PCP Internal Medicine; Visit Provider Internal Medicine
DX: J44.9 Chronic obstructive pulmonary disease, unspecified (principal)
CPT/HCPCS: 94060; 94727; 94729; 99213